=== PATIENT | male | born 1975 | race African-American/Black ===

== ENCOUNTER 2021-02-01 22:20 | Emergency (ER) | payer MEDICAID ==
[~2021-02-01] VITALS: Ht 180.3 cm; Wt 80.0 kg
[2021-02-01] MEDS ORDERED: PERTUSS(ACELL),DIPH,TET VAC/PF 0.5 ML SYRINGE IM. ONE (23:15)
[2021-02-01] MEDS ORDERED: LIDOCAINE 1% 10 ML VIAL IM ONE (23:15)
[2021-02-01 23:40] VITALS: BP 138/91
== END 2021-02-02 00:27 | disposition home or self-care (01) ==
LOC: EMS 22:20
DX: S61.213A Laceration without foreign body of left middle finger without damage to nail, initial encounter (principal); S61.215A Laceration without foreign body of left ring finger without damage to nail, initial encounter; W22.8XXA Striking against or struck by other objects, initial encounter; Y93.89 Activity, other specified; Y92.89 Other specified places as the place of occurrence of the external cause; Y99.8 Other external cause status
CPT/HCPCS: 12001; 73130; 90471; 90715; 99283; J3490

== ENCOUNTER 2021-02-14 17:37 | Emergency (ER) | payer MEDICAID ==
[~2021-02-14] VITALS: Ht 179.1 cm; Wt 76.8 kg
[2021-02-14 17:40] VITALS: BP 118/84
== END 2021-02-14 18:09 | disposition home or self-care (01) ==
LOC: EMS 17:39
DX: S61.213D Laceration without foreign body of left middle finger without damage to nail, subsequent encounter (principal); X58.XXXD Exposure to other specified factors, subsequent encounter
CPT/HCPCS: 99281; Z7502

== ENCOUNTER 2022-03-05 14:00 | Emergency (ER) | payer MEDICAID, OTHER ==
[~2022-03-05] VITALS: Ht 182.9 cm; Wt 72.7 kg
[2022-03-05] MEDS ORDERED: IBUPROFEN 400 MG TABLET PO ONE (17:45)
[2022-03-05] MEDS ORDERED: LIDOCAINE 5% TRANSDERMAL PATCH TD ONE (17:45)
[2022-03-05 19:08] VITALS: BP 123/69
== END 2022-03-05 19:14 | disposition home or self-care (01) ==
LOC: EMS 14:00
DX: M54.6 Pain in thoracic spine (principal); Z98.890 Other specified postprocedural states
CPT/HCPCS: 71045; 99283